=== PATIENT | male | born 1955 | race Caucasian/White ===

== ENCOUNTER 2023-07-28 09:19 | Day surgery (SDC) | payer OTHER, MEDICAID ==
[2023-07-26 14:21] LABS: Urine WBC None Seen /hpf (0 - 3)
[2023-07-26 14:33] LABS: Basophils # (auto) 0 10 ^3/uL (0-0.2); Basophils % (auto) 0.2 % (0.0-2.0); Eosinophils # (auto) 0.1 10 ^3/uL (0-0.8); Eosinophils % (auto) 0.7 % (0.0-7.0); Hematocrit 37.3 % (41.0-53.0); Hemoglobin 12.2 g/dL (13.5-17.5); Lymphocytes # (auto) 1.8 10 ^3/uL (0.4-5.4); Lymphocytes % (auto) 18.7 % (10.0-50.0); Mean Corpuscular Hemoglobin 30.5 pg (28.0-32.0); Mean Corpuscular Hgb Conc. 32.8 g/dL (32.0-36.0); Mean Corpuscular Volume 93.2 fL (80.0-100.0); Monocytes # (auto) 0.9 10 ^3/uL (0-1.3); Monocytes % (auto) 8.7 % (0.0-12.0); Neutrophils # (auto) 7.1 10 ^3/uL (1.6-8.6); Neutrophils % (auto) 71.7 % (37.0-80.0); Nucleated Red Blood Cells % 0.1 %; Red Cell Distribution Width 15.6 % (11.8-14.3); White Blood Cell 9.9 10^3/uL (4.4-10.8)
[2023-07-26 15:00] LABS: Urine Bacteria NONE SEEN /hpf (None Seen); Urine Blood 1+ /uL (Negative); Urine Clarity Clear (Clear); Urine Color Yellow (Yellow); Urine Protein, UAD Negative (Negative); Urine Specific Gravity 1.022 (1.001-1.035); Urine pH 6.5 (5.0-8.0)
[2023-07-26 15:04] LABS: INR 1.22 (0.9-1.15); Partial Thromboplastin Time 34.3 SEC (24.5-34.5); Prothrombin Time 12.6 sec (9.3-11.8)
[2023-07-26 15:25] LABS: Alanine Aminotransferase 18 U/L (7-40); Albumin 4.5 g/dL (3.2-4.8); Alkaline Phosphatase 84 U/L (46-116); Anion Gap 6 (5-15); Aspartate Aminotransferase 26 U/L (13-40); BUN/Creatinine Ratio 12.1 (10.0-20.0); Bilirubin, Total 0.6 mg/dL (0.2-1.0); Blood Urea Nitrogen 11 mg/dL (9-23); Calcium 9.2 mg/dL (8.5-10.1); Carbon Dioxide 29 mmol/L (20-30); Chloride 103 mmol/L (98-107); Glucose 92 mg/dL (74-106); Sodium 138 mmol/L (136-145)
[~2023-07-28] VITALS: Ht 188 cm; Wt 97.5 kg
[~2023-07-28 09:19] MED LIST: ALBUAER3 IN; ASPI81CH59 PO; ATOR40TA52 PO; CHOL200064 PO; CYAN-17 PO; FINA5TAB4 PO; ISOS10TA5 PO; MONT-8 OR; OXYC-113 PO; PREG150C PO; TAMS-35 PO
[2023-07-28] MEDS ORDERED: CIPROFLOXACIN 400MG/200ML 200 ML IV ONE (10:17)
[2023-07-28] MEDS ORDERED: PROPOFOL 10 MG/ML 20 ML IV ONE ×3 (10:49→11:38)
[2023-07-28] MEDS ORDERED: GLYCOPYRROLATE 0.2 MG/ML 1ML VIAL ONE (10:49)
[2023-07-28] MEDS ORDERED: KETOROLAC TROMETH 30 MG/ML 1ML VIAL ONE (10:49)
[2023-07-28] MEDS ORDERED: DexAMETHasone SOD PHOS 10MG/1ML VIAL INJ ONE (10:49)
[2023-07-28] MEDS ORDERED: ONDANSETRON HCL 4 MG/2 ML VIAL ONE (10:49)
[2023-07-28] MEDS ORDERED: LIDOCAINE 2% (LOCAL ANESTH.) PF 5ml SDV ONE (10:49)
[2023-07-28] MEDS ORDERED: fentaNYL CITRATE 100 MCG/2 ML VL ONE ×2 (11:04→11:21)
[2023-07-28 12:08] VITALS: PULSE 84; RESP 13; TEMP 97.6; O2SAT 99
[2023-07-28] MEDS ORDERED: PHENAZOPYRIDINE HCL 100 MG TAB PO ONE (12:15)
[2023-07-28 13:00] VITALS: BP 154/88; PULSE 78; RESP 15; O2SAT 94
== END 2023-07-28 13:08 | disposition home or self-care (01) ==
LOC: SUR 09:19
PROVIDERS: ATTEND Urology
DX: N40.1 Benign prostatic hyperplasia with lower urinary tract symptoms (principal); R97.20 Elevated prostate specific antigen [PSA]; N13.8 Other obstructive and reflux uropathy
CPT/HCPCS: 36415; 80053; 81001; 85025; 85610; 85730; 87086; C9740; J0744; J1100; J2001; J2405; J2704; J3010; L8699; J1885

== ENCOUNTER → 2023-10-17 | Outpatient (CLI) | payer OTHER, MEDICAID ==
[2023-10-17 09:31] LABS: Urine Bacteria NONE SEEN /hpf (None Seen); Urine Blood Negative /uL (Negative); Urine Clarity Clear (Clear); Urine Color Yellow (Yellow); Urine Protein, UAD Negative (Negative); Urine Urobilinogen Normal (Negative); Urine WBC <1 /hpf (0 - 3); Urine pH 6.5 (5.0-8.0)
== END | disposition home or self-care (01) ==
LOC: LAB 06:39
PROVIDERS: ATTEND Urology
DX: R30.0 Dysuria (principal)
CPT/HCPCS: 81001; 87086